=== PATIENT | male | born 2000 | race Caucasian/White ===

== ENCOUNTER 2023-10-11 18:25 | Emergency (ER) | payer OTHER, SELFPAY ==
[2023-10-11 18:28] VITALS: BP 132/91
--- NOTE | 2023-10-11 19:34 | ED.GENMED ---
History of Present Illness
General
Chief Complaint: Musculo-Skeletal Complaint
Source: patient
Exam Limitations: none
Time Seen by Provider: 10/11/23 19:34
Nursing documentation reviewed up to this point in time: agreed with
History of Present Illness
History of Present Illness:
This is a 23 y/o male with no pertinent past medical history presenting to the emergency department today with concerns of back pain. This is an acute on chronic issue. Patient is a basket ball player recreationally. Patient states that he will
start to notice this pain after he plays basket ball multiple days in a row. Patient has had similar pain in the past but states that it has gone away within a day or two but this time his pain persists. He has never seen his primary but has seen a
chiropractor in the past with this pain with no relief. Patient states that this current episode of pain started 5 days ago. He feels it in the left lower back and states that it radiates into the left buttock. He states that it is worse with
twisting and bending. He denies fevers, chills, dysuria, hematuria, urinary incontinence, fecal incontinence, saddle paresthesias, lower extremity weakness, inability to ambulate, paresthesias. Patient denies any falls.
Past History
Past History
ED Past Medical History: None
ED Past Surgical History: None
Social History
Tobacco: Non-smoker
Alcohol: Occasional
Personal: Single
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
Review of Systems
Review of Systems
All Other Systems: ROS reviewed and negative except as documented in HPI and ROS
Phy Exam
Physical Exam
Physical Exam:
General: Patient is well appearing and in no acute distress; non-toxic
Skin: Warm and dry, no rashes or lesions
Head: Normocephalic, atraumatic
Eyes: Sclera non-icteric. EOMs intact.
Peripheral Vascular: No lower extremity swelling or edema.
Cardiac: Regular rate
Pulm: Normal respiratory effort
Abdomen: Negative CVA tenderness bilaterally
Musculoskeletal: No tenderness to palpation of the spinal column. No tenderness to palpation of the paraspinal pulses. No tenderness to palpation. (+) left straight leg raise. Back pain/buttock pain elicited with hip flexion, abduction, adduction.
Neuro: CN II-XII intact, no focal neurologic deficits.
Psychiatric: Appropriate mood and affect.
Course
Orders/Labs/Results
Orders:
Orders
10/11/23 19:54
Cyclobenzaprine HCl [Flexeril] 10 mg PO NOW STA
Vital Signs
Initial and Last Documented VS:
Initial Vital Signs
Temp Pulse Resp BP Pulse Ox
98.1 F 86 18 132/91 97
10/11/23 18:28 10/11/23 18:28 10/11/23 18:28 10/11/23 18:28 10/11/23 18:28
Last Documented Vital Signs
Temp Pulse Resp BP Pulse Ox
98.1 F 86 18 132/91 97
10/11/23 18:28 10/11/23 18:28 10/11/23 18:28 10/11/23 18:28 10/11/23 18:28
MDM/Problems Addressed
Differential Diagnosis Includes:
ddx include lumbar muscular sprain/sprain, hip abductor strain, herniated disc, sciatica, nephrolithiasis
MDM/Problems Addressed:
Back pain:
23 y/o male with no past medical history presents to the emergency department today with concerns of low back pain. This episode of pain started after playing basket ball for many days in a row. The pain is worse with any movement. The low back pain
radiates into the buttock. On exam, he has a positive left straight leg raise. Symptoms concerning for sciatica/HNP vs hip abductor sprain/strain. Will treat with course of steroids. Return precautions discussed. Orthopedic follow up/outpatient MRI
discussed. Patient stable for discharge.
Chronic conditions affecting care:
n/a
Acute Exacerbation and/or Progression of Chronic Illness:
n/a
*Pulse Oximetry
Patient hypoxic: no
*Critical Care Note
Total Time (30-74mins, 75-104mins- exclusive of procedures): Not Applicable
Data Reviewed
Review of Other/Old Records Reveals: Records (reviewed ER physician documentation from 06/24/22)
Source: patient
Further Testing Considered But Not Given:
considered imaging study but patient has no significant comorbidities, no trauma, no midline spinal tenderness, no signs of cauda equina
Patient Management
Escalation/DeEscalation of care consider admission/obs:
Patient stable for discharge. Reviewed case with my attending. Dr. Woodard.
ED Attending Note
-
Portions of this chart may have been created with voice recognition software.� Occasional wrong word or��sound alike� substitutions may have occurred due to the inherent limitations of voice recognition software.
Discharge Plan
Departure
Patient Disposition: Home (Routine Discharge)
Date of Disposition: 10/11/23
Time of Disposition: 20:04
Patient with high blood pressure during this ER visit?: Yes
Condition: Good
Discharge Problem:
Back pain
Instructions: Low back pain in adults, Sciatica (DC)
Prescriptions:
New
methylprednisolone [Medrol (Evan)] 4 mg tablets,dose pack
See Rx Instructions .ROUTE .COMPLEX Qty: 21 0RF
Rx Instructions:
orally per package directions
No Action
pantoprazole [Protonix] 40 mg tablet,delayed release (DR/EC)
40 mg PO DAILY Qty: 10 0RF
sucralfate [Carafate] 1 gram tablet
1 g PO ACHS Qty: 40 0RF
Referrals:
Alida Darby I., DO [Active] - Call in 1-3 days for appt
Activity Restrictions/Additional Instructions:
Please return emergency department should you experience weakness in your legs, decrease ability to walk, blood in your urine, pain with urination, fevers or chills, numbness or tingling in your genital region, urinary incontinence, fecal
incontinence, or any other signs or symptoms concerning to you.
Please call the attached number for orthopedic referral to schedule follow-up appointment. May need MRI to better characterize your symptoms.
We sent Medrol Dosepak to your pharmacy. Please follow package instructions for dosing.
Interventions
Interventions:
*Risk Screen - Suicide Last Done: 10/11/23 20:02
*General Assessment Last Done: 10/11/23 20:02
*Neglect/Abuse Screening Last Done: 10/11/23 20:16
ED- Fall Risk Assessment Last Done: 10/11/23 20:16
*ED COVID-19 Vaccine History Last Done: 10/11/23 20:16
*Nursing Disposition Last Done: 10/11/23 20:17
ED-Musculoskeletal Assessment Last Done: 10/11/23 20:02
Discharge Date and Time
Discharge Date/Time: 10/11/23 20:18
Print Language: NIGERIAN
[2023-10-11] MEDS: FLEXERIL 10 MG PO (20:00)
== END 2023-10-11 20:18 | disposition home or self-care (01) ==
LOC: EMR 18:25
PROVIDERS: EMERGENCY PHYSICIAN Emergency Medicine; FAMILY PHYSICIAN Internal Medicine
DX: M54.9 Dorsalgia, unspecified (principal)
CPT/HCPCS: 99282

== ENCOUNTER 2023-11-10 13:55 | Emergency (ER) | payer OTHER, SELFPAY ==
[2023-11-10 14:01] VITALS: BP 132/106
[2023-11-10 14:19] LABS: % Basophils 0.3 % (0-2); % Eosinophils 1.3 % (0-6); % Immature Granulocytes 0.3 % (0-0.5); % Lymphocytes 25.9 % (20.5-51.1); % Monocytes 7.3 % (1.7-9.3); % Neutrophils 64.9 % (42.2-75.2); Absolute Eosinophils 0.1 10^3/uL (0-0.7); Absolute Lymphocytes 1.6 10^3/uL (1.2-3.4); Absolute Monocytes 0.4 10^3/uL (0.1-0.6); Absolute Neutrophils 3.9 10^3/uL (1.4-6.5); Hematocrit 47.1 % (39.0-52.0); Hemoglobin 17.1 g/dL (13.0-18.0); Mean Corp Hgb Conc. 36.3 g/dL (33.0-37.0); Mean Corpuscular Hgb 31.3 pg (27.0-31.0); Mean Corpuscular Volume 86.3 fL (80.0-94.0); Mean Platelet Volume 9.8 fL (7.4-10.4); Nucleated Red Blood Cells % 0 % (-); Platelet Count 237 10^3/uL (130-400); Red Blood Cell Count 5.46 10^6/uL (4.70-6.10); Red Cell Dist. Width 11.7 % (11.5-14.5); White Blood Cell Count 6.1 10^3/uL (4.8-10.8)
[2023-11-10 14:45] LABS: ALT (SGPT) 21 U/L (0-50); AST (SGOT) 25 U/L (17-59); Albumin 5.2 g/dl (3.5-5.0); Alkaline Phosphatase 83 U/L (38-126); Blood Urea Nitrogen 17 mg/dl (9-20); Calcium 10.4 mg/dl (8.4-10.2); Carbon Dioxide 27 mmol/L (22-30); Chloride 101 mmol/L (98-107); Glucose 102 mg/dl (70-99); Potassium 4.7 mmol/L (3.5-5.1); Sodium 138 mmol/L (135-145); Total Bilirubin 3.3 mg/dl (0.2-1.3); eGFR > 60.00
[2023-11-10 14:56] LABS: Troponin I < 0.012 ng/ml
--- NOTE | 2023-11-10 15:40 | ED.GENMED ---
History of Present Illness
General
Chief Complaint: Chest Pain
Time Seen by Provider: 11/10/23 15:08
History of Present Illness
History of Present Illness:
23-year-old male with no significant past medical presents to the emergency department for evaluation of nasal congestion and inability to take a deep breath for the past several days. He has had intermittent chest pains over the past 1 to 2 weeks
as well. Father alludes to the fact that they recently moved to a new apartment and wonders whether the ventilation could be problematic. No associated fevers/chills/sweats/N/V/D. No hx of asthma or RAD.
Past History
Past History
ED Past Medical History: None
ED Past Surgical History: None
Social History
Tobacco: Non-smoker
Alcohol: Occasional
Personal: Single
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
Review of Systems
Review of Systems
Allergies reviewed?: Yes
All Other Systems: ROS reviewed and negative except as documented in HPI and ROS
Phy Exam
Physical Exam
Physical Exam:
GEN: Well appearing, NAD, WDWN
HEENT: Oral mucosa moist, no scleral icterus
Cardiac: Regular rate and rhythm, no murmurs
Lung: No respiratory distress, no tachypnea, lungs CTAB
MSK: No gross deformity or injuries
Skin: Good color, no pallor or jaundice, no rashes
Neuro: AO x3, moves all extremities freely
Psych: Calm, cooperative
Scores
Heart Score for Chest Pain Patients
STEMI patient?: No
History: Slightly or Non-Suspicious
ECG: Normal
Age: </= 45 years
Risk Factors: No Risk Factors
Troponin: </= Normal Limit
Heart Score for Chest Pain Patients: 0
Heart Score Risk: 2.5% MACE over next 6 weeks
Course
Orders/Labs/Results
Orders:
Orders
11/10/23 14:04
Electrocardiogram (*1) Urgent
Reason for Study: Chest Pain
EKG- Treatment ONCE
11/10/23 14:13
Complete Blood Count/With Diff Urgent
Comprehensive Metabolic Panel Urgent
Troponin I Urgent
11/10/23 15:40
CR Chest - 2 Views Urgent
Comment:
Reason For Exam: chest pain/SOB
Abnormal Lab Results
11/10/23
14:13
MCH 31.3 H pg
(27.0-31.0)
Glucose 102 H mg/dl
(70-99)
Calcium 10.4 H mg/dl
(8.4-10.2)
Total Bilirubin 3.3 H mg/dl
(0.2-1.3)
Albumin 5.2 H g/dl
(3.5-5.0)
11/10/23 14:13
11/10/23 14:13
Vital Signs
Initial and Last Documented VS:
Initial Vital Signs
Temp Pulse Resp BP Pulse Ox
98.5 F 95 20 132/106 96
11/10/23 14:01 11/10/23 14:01 11/10/23 14:01 11/10/23 14:01 11/10/23 14:01
Last Documented Vital Signs
Temp Pulse Resp BP Pulse Ox
98.5 F 64 18 127/70 98
11/10/23 14:01 11/10/23 15:47 11/10/23 15:47 11/10/23 15:47 11/10/23 15:47
MDM/Problems Addressed
MDM/Problems Addressed:
Patient's exam is benign, no adventitious lung sounds. Chest x-ray reassuring. Cardiac workup unremarkable. Low clinical suspicion for acute coronary syndrome. No clinical presentation with myocarditis or pericarditis. Could be mild bronchitis
on the basis of recent living situation change/ventilation change. Recommend primary Care follow-up
*Critical Care Note
Total Time (30-74mins, 75-104mins- exclusive of procedures): Not Applicable
ED Attending Note
-
Portions of this chart may have been created with voice recognition software.� Occasional wrong word or��sound alike� substitutions may have occurred due to the inherent limitations of voice recognition software.
Discharge Plan
Departure
Patient Disposition: Home (Routine Discharge)
Date of Disposition: 11/10/23
Time of Disposition: 16:06
Patient with high blood pressure during this ER visit?: No
Discharge Problem:
Chest tightness
Instructions: Chest Pain That Is Not Caused by the Heart (DC)
Prescriptions:
No Action
pantoprazole [Protonix] 40 mg tablet,delayed release (DR/EC)
40 mg PO DAILY Qty: 10 0RF
sucralfate [Carafate] 1 gram tablet
1 g PO ACHS Qty: 40 0RF
methylprednisolone [Medrol (Evan)] 4 mg tablets,dose pack
See Rx Instructions .ROUTE .COMPLEX Qty: 21 0RF
Rx Instructions:
orally per package directions
Referrals:
Alida Granger MD [Family Provider] -
Activity Restrictions/Additional Instructions:
Your labs work, EKG and chest x ray are all normal
The breathing difficulty could be a product of your new living situation
Try over the counter antihistamines such as Zyrtec (cetirizine) or Sanjuana (fexofenadine) once daily as needed for symptoms
Follow up with your primary care doctor if symptoms persist
Interventions
Interventions:
*Risk Screen - Suicide Last Done: 11/10/23 14:01
*General Assessment Last Done: 11/10/23 14:01
*Neglect/Abuse Screening Last Done: 11/10/23 14:01
ED- Fall Risk Assessment Last Done: 11/10/23 15:50
*Nursing Disposition Last Done: 11/10/23 16:20
ED- Cardiac Assessment Last Done: 11/10/23 15:50
Discharge Date and Time
Discharge Date/Time: 11/10/23 16:21
Print Language: KOSOVAN
[2023-11-10 15:43] VITALS: BMI 19.6
[2023-11-10 15:47] VITALS: BP 127/70
== END 2023-11-10 16:21 | disposition home or self-care (01) ==
LOC: EMR 13:55
PROVIDERS: EMERGENCY PHYSICIAN Emergency Medicine; FAMILY PHYSICIAN Internal Medicine
DX: R07.89 Other chest pain (principal); R09.81 Nasal congestion; R06.02 Shortness of breath; Z91.018 Allergy to other foods
CPT/HCPCS: 99283; 71046; 80053; 84484; 85025; 93005

== ENCOUNTER 2024-10-18 06:19 | Day surgery (SDC) | payer OTHER, SELFPAY | END 2024-10-18 15:25 | disposition home or self-care (01) | LOC: GI 06:19 | PROVIDERS: ATTENDING PHYSICIAN Internal Medicine Gastroenterology | DX: K31.89 Other diseases of stomach and duodenum (principal); K27.9 Peptic ulcer, site unspecified, unspecified as acute or chronic, without hemorrhage or perforation | CPT/HCPCS: 43239; 88305; 88342 ==

== ENCOUNTER 2024-10-21 15:46 | Emergency (ER) | payer OTHER, SELFPAY ==
[2024-10-21 16:14] VITALS: BP 137/93
[2024-10-21 16:54] LABS: Hematocrit 49.2 % (39.0-52.0); Hemoglobin 16.9 g/dL (13.0-18.0); Mean Corp Hgb Conc. 34.3 g/dL (33.0-37.0); Mean Corpuscular Volume 89.8 fL (80.0-94.0); Nucleated Red Blood Cells % 0 % (-); Platelet Count 235 10^3/uL (130-400); Red Cell Dist. Width 12.1 % (11.5-14.5)
[2024-10-21 17:05] VITALS: BMI 20.6
[2024-10-21 17:09] VITALS: BP 123/79
[2024-10-21 17:11] LABS: ALT (SGPT) 23 U/L (0-50); AST (SGOT) 24 U/L (17-59); Albumin 5.7 g/dl (3.5-5.0); Alkaline Phosphatase 70 U/L (38-126); Blood Urea Nitrogen 16 mg/dl (9-20); Calcium 10.4 mg/dl (8.4-10.2); Carbon Dioxide 28 mmol/L (22-30); Chloride 103 mmol/L (98-107); Estimated Creatinine Clearance 105 ml/min; Glucose 96 mg/dl (70-99); Potassium 4.4 mmol/L (3.5-5.1); Sodium 140 mmol/L (135-145); Total Protein 9.0 g/dl (6.3-8.2); eGFR > 60.00
--- NOTE | 2024-10-21 17:34 | ED.GENMED ---
History of Present Illness
General
Chief Complaint: Rectal Bleeding
Source: patient
Exam Limitations: none
Time Seen by Provider: 10/21/24 17:26
Nursing documentation reviewed up to this point in time: agreed with
History of Present Illness
History of Present Illness:
Patient is a 24-year-old male who presents to the emergency department today for evaluation of black stool which he noticed earlier this morning. Patient states he had 3 bowel movements this morning that were very dark, almost black in color. He
denies any other associated symptoms including abdominal pain, nausea, vomiting. He has had no bloody stools. He is having no urinary difficulty. He denies any diarrhea or constipation. Patient reports a normal appetite and has been drinking
fluids. He has not had Pepto-Bismol in a few weeks. He has only been taking Prilosec.
Of note�patient did have an endoscopy procedure on 10/18/2024 to follow-up on peptic ulcers which he had earlier this year. The endoscopy revealed that the ulcers had healed and no other acute abnormalities however a few biopsies were obtained.
He states that he had normal bowel movements the first few days following the procedure. His GI doctor did warn him that he may experience black stools a few days following procedure however when he contacted them today he was referred to the
emergency department for further evaluation.
Past History
Past History
ED Past Medical History: None
ED Past Surgical History: None
Social History
Tobacco: Non-smoker
Alcohol: Occasional
Personal: Single
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
Review of Systems
Review of Systems
Allergies reviewed?: Yes
All Other Systems: ROS reviewed and negative except as documented in HPI and ROS
Phy Exam
Physical Exam
Physical Exam:
Vitals: Patient's vital signs are stable. Afebrile
General: Patient is well appearing, no acute distress. Nontoxic appearing
Skin: Warm and dry, no rashes or lesions
Head: Normocephalic, atraumatic
Eyes: Sclera nonicteric.
Throat: Protecting airway
Neck: Normal ROM, no cervical spine tenderness, no meningismus
Cardiac: Regular rate and rhythm, no murmurs.
Pulm: Normal respiratory effort, no wheezes, rales, rhonchi heard on exam
Abdomen: Abdomen soft. No focal tenderness.
Rectal: No stool in vault. No external hemorrhoids visualized or evidence of active bleeding.
Extremities: No evidence of cyanosis or edema. 2+ palpable DP pulses bilaterally
Neuro: AAOx3. Grossly intact.
Psychiatric: Normal affect.
Course
Orders/Labs/Results
Orders:
Orders
10/21/24 16:30
CMP [Comprehensive Metabolic Panel] Urgent
Complete Blood Count/With Diff Urgent
Abnormal Lab Results
10/21/24
16:30
Calcium 10.4 H mg/dl
(8.4-10.2)
Total Bilirubin 2.7 H mg/dl
(0.2-1.3)
Total Protein 9.0 H g/dl
(6.3-8.2)
Albumin 5.7 H g/dl
(3.5-5.0)
10/21/24 16:30
10/21/24 16:30
Vital Signs
Initial and Last Documented VS:
Initial Vital Signs
Temp Pulse Resp BP Pulse Ox
98.1 F 87 18 137/93 99
10/21/24 16:14 10/21/24 16:14 10/21/24 16:14 10/21/24 16:14 10/21/24 16:14
Last Documented Vital Signs
Temp Pulse Resp BP Pulse Ox
98.1 F 87 18 123/79 98
10/21/24 16:14 10/21/24 16:14 10/21/24 16:14 10/21/24 17:09 10/21/24 17:35
MDM/Problems Addressed
Differential Diagnosis Includes:
Not limited to: Minor upper GI bleeding s/p endoscopy, medication side effect, peptic ulcer, etc.
MDM/Problems Addressed:
24-year-old male presenting with history of black stools three days following endoscopy. No associated abdominal pain, nausea or vomiting. No fevers. No lightheadedness, dizziness, shortness of breath. Patient not on any oral anticoagulation. On
review of records � patient had uncomplicated endoscopy performed earlier this week with a few biopsies taken although no complications. Patient hemodynamically stable. Exam as above. Rectal exam was performed, however no stool in vault for a fecal
occult blood testing however, no evidence of active bleeding.
Labs obtained without any acute abnormalities. Hemoglobin is normal. No elevation of BUN to suggest upper G.I. bleeding.
Ultimately � no evidence of significant bleeding/active bleeding on exam today. Do feel that some degree of minor bleeding possibly expected after endoscopy. Patient remains hemodynamically stable. Ultimately feel stable for discharge home with
close monitoring and outpatient G.I. follow up. Discussed with G.I. non destructive evaluation technician who agrees w/ plan. Return precautions discussed.
Chronic conditions affecting care:
History of peptic ulcer, recent endoscopy
Acute Exacerbation and/or Progression of Chronic Illness:
N/A
*Pulse Oximetry
SaO2: 98
Oxygen Mode of Delivery: Room air
Patient hypoxic: no
*EKG
Interpreted by ED Provider?: NA
*Inserter Promotional Item Interpretation
Rate: Inserter Promotional Item- N/A
*Critical Care Note
Total Time (30-74mins, 75-104mins- exclusive of procedures): Not Applicable
Data Reviewed
Review of Other/Old Records Reveals: Operative Reports (Endoscopy report 10/18/24 w/ Dr. Jacobs - normal exam with multiple biopsies obtained)
Patient Management
Discussion with other providers: Vp Rheumatology (Case discussed w/ GI)
ED Attending Note
-
Portions of this chart may have been created with voice recognition software.� Occasional wrong word or��sound alike� substitutions may have occurred due to the inherent limitations of voice recognition software.
Discharge Plan
Departure
Patient Disposition: Home (Routine Discharge)
Date of Disposition: 10/21/24
Time of Disposition: 18:36
Patient with high blood pressure during this ER visit?: Yes
Condition: Good
Discharge Problem:
Dark stools
Instructions: Gastrointestinal Bleeding (DC), Upper endoscopy, BLOOD PRESSURE
Prescriptions:
No Action
pantoprazole [Protonix] 40 mg tablet,delayed release (DR/EC)
40 mg PO DAILY Qty: 10 0RF
sucralfate [Carafate] 1 gram tablet
1 g PO ACHS Qty: 40 0RF
methylprednisolone [Medrol (Evan)] 4 mg tablets,dose pack
See Rx Instructions .ROUTE .COMPLEX Qty: 21 0RF
Rx Instructions:
orally per package directions
Referrals:
Do,Sheron Gan MD [Active, Gastroenterology]
UNKNOWN - PT DOES,NOT KNOW [Unknown Provider]
Activity Restrictions/Additional Instructions:
RETURN TO THE EMERGENCY DEPARTMENT WITH ANY OBVIOUS RECTAL BLEEDING, PERSISTENTLY DARK STOOLS ASSOCIATED WITH SUCH LIGHTHEADEDNESS, DIZZINESS, SHORTNESS OF BREATH, WEAKNESS, ABDOMINAL PAIN, VOMITING BLOOD, FEVERS, WORSENING IN CURRENT SYMPTOMS,
OR ANY OTHER CONCERNS
- As discussed�your hemoglobin was normal in the emergency department. There was no evidence of active bleeding.
- Please continue to stay well-hydrated. Take all medications as prescribed.
- Call the GI office tomorrow to schedule possible outpatient follow-up.
Monitor your symptoms closely and return to the emergency department with any acute worsening/new symptoms or any other concerns
Interventions
Interventions:
*Risk Screen - Suicide Last Done: 10/21/24 16:14
*General Assessment Last Done: 10/21/24 16:14
*Neglect/Abuse Screening Last Done: 10/21/24 17:05
*ED- Fall Risk Assessment Last Done: 10/21/24 17:05
*ED COVID-19 Vaccine History Last Done: 10/21/24 16:14
*Nursing Disposition Last Done: 10/21/24 18:59
FA-Zalvce-Jamjtvhnjo Assessment Last Done: 10/21/24 17:05
ED- Cardiac Assessment Last Done: 10/21/24 17:05
ED- Pulmonary Assessment Last Done: 10/21/24 17:05
Discharge Date and Time
Discharge Date/Time: 10/21/24 18:59
Print Language: SAMI
== END 2024-10-21 18:59 | disposition home or self-care (01) ==
LOC: EMR 15:46
PROVIDERS: Emergency Medicine; EMERGENCY PHYSICIAN Emergency Medicine; FAMILY PHYSICIAN Student in an Organized Health Care Education/Training Program
DX: K92.1 Melena (principal); Z87.11 Personal history of peptic ulcer disease
CPT/HCPCS: 99283; 80053; 85025